=== PATIENT | female | born 1990 | race Caucasian/White ===

== ENCOUNTER 2021-12-21 18:28 | Emergency (ER) | payer OTHER, SELFPAY ==
--- NOTE | ~2021-12-21 | CT_ITS ---
EXAMINATION: CT abdomen pelvis w con DATE: 12/21/2021 21:32 INDICATION: lower abd pain most noted in RLQ TECHNIQUE: Computed tomography (CT) of the abdomen and pelvis was performed with 100 mL Omnipaque-350 intravenous contrast. Automated exposure control and iterative reconstruction technique were employe d. The dose-length product was 1460.02 mGy-cm. COMPARISON: None FINDINGS: Lower thorax: Unremarkable. Liver: Normal. Biliary/Gallbladder: Gallbladder is normal. No bile duct dilation. Spleen: Normal. Pancreas: No mass or duct dilation. Adrenals:No mass. Kidneys: No mass, stone, or hydronephrosis. GI tract: No small or large bowel dilation. Normal appendix. Mesentery/Peritoneum: No ascites, mass, or free air. Retroperitoneum: No mass. Pelvis: Pelvic organs are within normal limits. Bones/Soft Tissues: Soft tissues and body wall unremarkable. No acute osseous finding. Additional Findings: None. IMPRESSION: No acute abdominopelvic process detected. Reviewed, dictated and finalized at location K.
[2021-12-21 18:31] VITALS: BP 131/84; PULSE 101; RESP 16; TEMP 36.6; O2SAT 100
[2021-12-21 18:55] LABS: Basophils Percent Auto 0.3 % (0.2-1.2); Eosinophils Percent Auto 0.3 % (0-4.4); Hematocrit 44.2 % (37.0-47.0); Immature Granulocyte Absolute 0.04 K/mm3 (0.00-0.031); Immature Granulocyte Percent A 0.3 % (0-0.5); Lymphocytes Absolute Auto 0.58 K/mm3 (0.9-3.2); Lymphocytes Percent Auto 3.9 % (18.3-44.2); Mean Corpuscular HGB Conc 31.7 g/dl (32-36); Mean Corpuscular Hemoglobin 28.5 pg (26-34); Mean Platelet Volume 9.3 fl (7.4-10.4); Monocytes Absolute Auto 0.3 K/mm3 (0.1-0.6); Monocytes Percent Auto 1.8 % (2.6-8.5); Neutrophils Absolute Auto 13.9 K/mm3 (1.3-6.7); Neutrophils Percent Auto 93.4 % (45.5-73.1); Platelet Count Result 434 k/mm3 (150-375); Red Blood Count 4.91 M/mm3 (4.2-5.4); Red Cell Distribution Width 14.2 % (11.5-14.5); White Blood Count 14.9 K/mm3 (4.5-10.0)
[2021-12-21 19:05] LABS: Alanine Aminotransferase 29 U/L (4-35); Albumin Level 4.5 g/dL (3.5-5.1); Alkaline Phosphatase 89 U/L (38-126); Anion Gap 9 mmol/L (8-16); Aspartate Amino Transferase 33 U/L (14-36); Bilirubin,Total 0.6 mg/dL (0.2-1.3); Blood Urea Nitrogen 14 mg/dL (7-17); Calcium 8.8 mg/dL (8.4-10.2); Carbon Dioxide 25 mmol/L (22-30); Chloride 101 mmol/L (98-107); Estimated CRCL calculation 114 ml/min; Estimated Glomerular Filt Rate > 60; Glucose 118 mg/dL (65-110); Lipase 37 U/L (23-300); Potassium 3.8 mmol/L (3.4-5.0); Sodium 135 mmol/L (137-145)
[2021-12-21 19:29] LABS: Appearance Urine Clear (Clear); Bilirubin Urine 1+ (Negative); Color Urine Yellow (Yellow); Glucose Urine UA Negative (Negative); Ketones Urine 1+ mg/dL (Negative); Leukocyte Esterase Ur Negative LEU/UL (Negative); Nitrate Urine Negative (Negative); Protein Urine Trace mg/dL (Negative); Urobilinogen Urine 0.2 mg/dL (<2.0); pH Urine 7.5 (5.0-9.0)
[2021-12-21 19:39] LABS: Mucus Urine Rare /lpf; Squamous Epithelial Cell Urine Many /hpf (Few)
[2021-12-21 19:40] LABS: Add Urine Microscopic? YES; Blood Urine Trace-Intact (Negative)
--- NOTE | 2021-12-21 21:58 | PC.NURSE ---
LIONEL received from [facility] Dr. Rosas for IV Tylenol.
[2021-12-21] MEDS: ONDANSETRON INJ 4 MG/2 ML VIAL IV PUSH (22:05)
[2021-12-21] MEDS: SODIUM CHLORIDE 0.9% IV 1,000 ML 999 ML IV CONT (22:05)
--- NOTE | 2021-12-21 22:08 | ED.ABDPAIN ---
HPI - Abdominal Pain General Chief Complaint: Abdominal Pain Stated Complaint: vomiting Time Seen by Provider: 12/21/21 20:45 Source: patient History of Present Illness HPI narrative: Patient comes with nausea vomiting diarrhea and abdominal pain. Patient ports symptoms started today around 11:00 gotten progressively worse. Looked up her symptoms online was concerning she had appendicitis that she came to the ER for evaluation. She has any blood bile or melena. She denies any fevers or known sick contacts. Her pain is primarily lower abdomen describes a pressure sensation that slightly worse on the right side. Pain does not radiate to the back and there are no clear aggravating or alleviating symptoms. Related Data Allergies Allergy/AdvReac Type Severity Reaction Status Date / Time diphenhydramine Allergy Unknown Unknown Verified 12/21/21 21:11 Review of Systems Review of Systems: CONSTITUTIONAL: Denies fever, chills, or sweats. EYES: Denies visual changes, redness, or discharge. ENT: Denies rhinorrhea, congestion, sore throat, or otalgia. CARDIOVASCULAR: Denies chest pain, palpitations, or edema. RESPIRATORY: Denies cough or dyspnea. GASTROINTESTINAL: Abdominal pain with nausea vomiting and diarrhea GENITOURINARY: Denies dysuria or hematuria. SKIN: Denies rash or itching. MUSCULOSKELETAL: Denies back pain, joint pain, or myalgia. NEUROLOGIC: Denies headache, numbness, dizziness, or weakness. PSYCHIATRIC: Denies anxiety or depression. All systems reviewed & are unremarkable except as noted in HPI and below PMFSH Past Medical History Medical History Adult BMI 45.0-49.9 kg/sq m Morbid (severe) obesity due to excess calories Unspecified hearing loss, bilateral Family History Family History Father Heart defect Substance abuse Alcohol abuse Mother Arthritis Tobacco abuse Daughter Autism Social History Social History Alcohol intake: current Alcohol use details: rarity Substance use: never Substance use type: does not use Exam Narrative: GENERAL: Well-appearing, well-nourished, and in no acute distress. HEAD: Normocephalic, atraumatic. EYES: PERRLA and EOMI. ENT: Nares clear, no rhinorrhea or epistaxis. Mucous membranes moist. NECK: Supple. No masses. No JVD CHEST: Clear to auscultation. No respiratory distress. No wheezes rales or rhonchi HEART: Regular rate and rhythm. No murmur heard. Normal peripheral pulses. ABDOMEN: Mild tenderness in the lower abdomen slightly more prominent in the right lower quadrant no rebound or guarding soft, nondistended, normal active bowel sounds. EXTREMITIES: Normal range of motion. No edema. SKIN: Warm, dry, no rash. NEURO: No focal deficits. Alert and oriented x3. PSYCH: Normal mood and affect. Course Reevaluation(s) Reevaluation #1: Patient is resting comfortably results and plan reviewed with patient. Patient is comfortable outpatient plan. Date: 12/21/21 Time: 22:11 Vital Signs Vital signs: Vital Signs Temperature 36.6 C 12/21/21 18:31 Pulse Rate 101 H 12/21/21 18:31 Respiratory Rate 16 12/21/21 18:31 Blood Pressure 131/84 12/21/21 18:31 Pulse Oximetry 100 12/21/21 18:31 Temperature 36.6 C 12/21/21 18:31 Pulse Rate 95 12/21/21 23:16 Respiratory Rate 16 12/21/21 23:16 Blood Pressure 116/68 12/21/21 23:16 Pulse Oximetry 97 12/21/21 23:16 MDM - Abdominal Pain MDM Narrative Medical decision making narrative: H&P as above, vss, pt looks clinically well, exam with lower abdominal pain, labs with mild elevation in white count, img without acute process, additional labs/img considered, symptomatic relief available as needed, on reevaluation pt continues to looks clinically well. Suspect viral gastroenteritis, dns severe sepsis consider dehydratio
[2021-12-21 23:16] VITALS: BP 116/68; PULSE 95; RESP 16; O2SAT 97
== END 2021-12-21 23:18 | disposition home or self-care (01) ==
PROVIDERS: Emergency Medicine; Emergency Provider Emergency Medicine; PCP Family Medicine
DX: R11.2 Nausea with vomiting, unspecified (principal); R19.7 Diarrhea, unspecified; R10.30 Lower abdominal pain, unspecified; E66.01 Morbid (severe) obesity due to excess calories; Z68.42 Body mass index [BMI] 45.0-49.9, adult; H91.93 Unspecified hearing loss, bilateral
CPT/HCPCS: 36415; 74177; 80053; 81001; 81025; 83690; 85025; 96365; 96375; 99284; J0131; J2405; J7030; Q9967

== ENCOUNTER 2022-01-20 08:53 | Outpatient (CLI) | payer OTHER, SELFPAY ==
--- NOTE | ~2022-01-20 | XR_ITS ---
EXAMINATION: XR chest 2V 01/20/2022 09:10 INDICATION: Cough for one week PROCEDURE: 2 view chest COMPARISON: 09/08/2015 FINDINGS: The lungs are clear. The cardiomediastinal silhouette is within normal limits. There are no pleural effusions. There is no pneumothorax suspected. IMPRESSION: 1: NO ACUTE CARDIOPULMONARY DISEASE. Reviewed, dictated and finalized at location A.
== END 2022-01-20 08:54 | disposition home or self-care (01) ==
PROVIDERS: PCP Family Medicine; Visit Provider Nurse Practitioner Family
DX: R05.3 Chronic cough (principal)
CPT/HCPCS: 71046

== ENCOUNTER 2022-08-22 12:36 | Emergency (ER) | payer OTHER, SELFPAY ==
[2022-08-22 13:45] VITALS: BP 150/90; PULSE 108; RESP 20; TEMP 37.8; O2SAT 99
--- NOTE | 2022-08-22 14:36 | ED.URI ---
HPI - URI/Sore Throat General Chief Complaint: Upper Respiratory Infection Stated Complaint: Eyes Irritation,Sore Throat, Running Nose Time Seen by Provider: 08/22/22 14:36 Source: patient Mode of arrival: ambulatory Limitations: no limitations History of Present Illness HPI Narrative: 32-year-old female presents with complaint of nasal congestion, sinus pressure, sinus congestion, cough, sore throat for 6 days. Reports symptoms getting progressively worse. Afebrile. Reports redness, irritation to both eyes 2 days. Reports symptoms to right eye started 1st. Denies chest pain and shortness of breath. No nausea vomiting diarrhea. All systems reviewed and negative except as noted above. Related Data Home Medications Medication Instructions Recorded Confirmed norgestimate-ethinyl estradiol 1 tablet PO DAILY 01/19/22 08/22/22 0.18 mg/0.215mg/0.25mg-35 mcg(28)tablet Allergies Allergy/AdvReac Type Severity Reaction Status Date / Time diphenhydramine Allergy Unknown Unknown Verified 08/22/22 13:39 Review of Systems Review of Systems: CONSTITUTIONAL: Denies fever, chills, or sweats. EYES: Denies visual changes. Reports redness, itching and discharge. ENT: Reports rhinorrhea, congestion, sore throat. Denies otalgia. CARDIOVASCULAR: Denies chest pain, palpitations, or edema. RESPIRATORY reports cough. Denies dyspnea. GASTROINTESTINAL: Denies abdominal pain, nausea, vomiting, or diarrhea. GENITOURINARY: Denies dysuria or hematuria. SKIN: Denies rash or itching. MUSCULOSKELETAL: Denies back pain, joint pain, or myalgia. NEUROLOGIC: Denies headache, numbness, or weakness. PSYCHIATRIC: Denies anxiety or depression. All other systems reviewed are negative, except as documented in HPI. [facility] Past Medical History Medical History Adult BMI 45.0-49.9 kg/sq m COVID-19 Morbid (severe) obesity due to excess calories Unspecified hearing loss, bilateral Family History Family History Father Heart defect Substance abuse Alcohol abuse Mother Arthritis Tobacco abuse Daughter Autism Social History Social History Alcohol intake: current Alcohol use details: rarity Substance use: never Substance use type: does not use Comments At time of signature, agree with nursing past medical, surgical, social and family history. There is no relevant family history pertinent to the presenting complaint. Exam Narrative: GENERAL: This is a well-nourished, well-developed patient. Patient ill-appearing but in no distress. HEAD: normocephalic, atraumatic. EYES: PERRL. Sclera clear/white. Vision is grossly intact. EARS: External ears normal, auditory canals clear and without drainage, Fluid to bilateral TMs. NOSE: External nose normal with PERRLA nasal drainage, erythema and swelling to both nares. Bilateral maxillary sinus tenderness. THROAT: Mucous membranes moist, Swelling and erythema to pharynx. NECK: Neck supple, non-tender without lymphadenopathy, masses or thyromegaly. CARDIOVASCULAR: Regular rate and rhythm without murmurs, gallops, or rubs. RESPIRATORY: Clear to auscultation. Breath sounds equal bilaterally. No wheezes, rales, or rhonchi. SKIN: warm, Dry, intact with no suspicious lesions or rash, good texture and turgor. NEURO: awake, alert, and oriented to person, place and time. There were no obvious focal neurologic abnormalities. EXTREMITIES: No joint tenderness, effusion, or edema noted. Course Course Level of Care: Express Care Visit Vital Signs Vital signs: Vital Signs Temperature 37.8 C H 08/22/22 13:45 Pulse Rate 108 H 08/22/22 13:45 Respiratory Rate 20 08/22/22 13:45 Blood Pressure 150/90 H 08/22/22 13:45 Pulse Oximetry 99 08/22/22 13:45 Temperature 37.8 C H 08/22/22 13:45 P
== END 2022-08-22 14:46 | disposition home or self-care (01) ==
PROVIDERS: Emergency Provider Nurse Practitioner Family; PCP Family Medicine
DX: J01.90 Acute sinusitis, unspecified (principal); J02.9 Acute pharyngitis, unspecified; H10.33 Unspecified acute conjunctivitis, bilateral; Z86.16 Personal history of COVID-19; E66.01 Morbid (severe) obesity due to excess calories; Z68.41 Body mass index [BMI] 40.0-44.9, adult
CPT/HCPCS: 99213; G0463

== ENCOUNTER 2024-06-28 09:23 | Emergency (ER) | payer OTHER, SELFPAY ==
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
--- NOTE | ~2024-06-28 | XR_ITS ---
EXAMINATION: XR forearm RT 2V DATE: 06/28/2024 10:16 INDICATION: Right forearm swelling and bruising TECHNIQUE: AP an lateral views of the right forearm were obtained. COMPARISON: none FINDINGS: Alignment is normal. No fracture. Joint spaces are normal. Soft tissues are unremarkable. No right el bow joint effusion. IMPRESSION: 1. Negative right forearm radiographs. Reviewed, dictated and finalized at location A.
[2024-06-28 09:34] VITALS: BP 131/73; PULSE 73; RESP 20; TEMP 36.9; O2SAT 98
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
== END 2024-06-28 11:34 | disposition home or self-care (01) ==
PROVIDERS: Emergency Provider Nurse Practitioner Family; PCP Family Medicine
DX: S39.012A Strain of muscle, fascia and tendon of lower back, initial encounter (principal); S50.11XA Contusion of right forearm, initial encounter; V43.52XA Car driver injured in collision with other type car in traffic accident, initial encounter; E66.01 Morbid (severe) obesity due to excess calories; Z68.42 Body mass index [BMI] 45.0-49.9, adult; F12.90 Cannabis use, unspecified, uncomplicated; Z86.16 Personal history of COVID-19
CPT/HCPCS: 72100; 73090; 99214; G0463